=== PATIENT | female | born 1940 ===

== ENCOUNTER 2017-01-11 10:13 | Emergency (ER) | payer MEDICARE ==
[2017-01-11 10:30] VITALS: BP 112/67; PULSE 58; RESP 16; TEMP 97.4; O2SAT 96
--- NOTE | 2017-01-11 10:46 | C.PDOC ---
History Of Present Illness 76 year old female presents to the ER with complaint of a painful and swollen right 4th toe after stubbing it on a computer chair 3 days ago. Patient denies any other injuries, and she has no sensory changes, fever, bleeding, discharge. Time Seen by Provider: 01/11/17 10:35 Chief Complaint (Nursing): Lower Extremity Problem/Injury History Per: Patient History/Exam Limitations: no limitations Onset/Duration Of Symptoms: Days (3) Current Symptoms Are (Timing): Still Present Severity: Mild - Ankle/Foot Description Of Injury: Struck With Object (Computer chair) Past Medical History Reviewed: Historical Data, Nursing Documentation, Vital Signs Vital Signs: Last Vital Signs Temp 97.4 F L 01/11/17 10:28 Pulse 58 L 01/11/17 10:28 Resp 16 01/11/17 10:28 BP 112/67 01/11/17 10:28 Pulse Ox 96 01/11/17 12:17 - Medical History PMH: No Chronic Diseases - [facility] Procedures CERVICAL BIOPSY NEC (12/21/01) D & C NEC (11/29/02) GYNECOLOGIC EXAMINATION (06/04/98) HYSTEROSCOPY (11/29/02) OTH LYSIS-PERITONEAL ADHES (05/27/06) OTH REMOVE BOTH OVARIES/TUBES (05/27/06) OTHER AND UNSPECIFIED TOTAL ABDOMINAL HYSTERECTOMY (05/27/06) UTERINE LES DESTRUCT NEC (11/29/02) Family History: States: No Known Family Hx - Social History Hx Alcohol Use: No Hx Substance Use: No - Immunization History Hx Tetanus Toxoid Vaccination: No Hx Influenza Vaccination: No Hx Pneumococcal Vaccination: No Review Of Systems Except As Marked, All Systems Reviewed And Found Negative. Constitutional: Negative for: Fever Musculoskeletal: Positive for: Foot Pain (Right 4th toe with swelling) Skin: Negative for: Rash Neurological: Negative for: Weakness, Numbness Physical Exam - Physical Exam Appears: Well, Non-toxic Skin: Normal Color, Warm, Dry, No Rash Cardiovascular: Rhythm Regular Respiratory: Normal Breath Sounds, No Rales, No Rhonchi, No Wheezing Extremity: Normal ROM (right ankle), Tenderness (right 5th toe TTP ), No Calf Tenderness, Capillary Refill (<2 sec all digits ), No Deformity, Swelling ( Right 5th toe) Pulses: Left Dorsalis Pedis: Normal, Right Dorsalis Pedis: Normal Neurological/Psych: Oriented x3, Normal Sensation Gait: Steady ED Course And Treatment O2 Sat by Pulse Oximetry: 96 (Room air) Pulse Ox Interpretation: Normal - Other Rad Right foot x-ray X-Ray: Viewed By Me, Read By Radiologist Interpretation: Impression: Please note this is a study of the right foot. Transverse oblique fracture deformity through the midshaft of the 4th proximal phalanx.Diffuse osteopenia. Moderate hallux valgus deformity with joint space narrowing and subchondral sclerosis. Prominent plantar and dorsal calcaneal spurring. Prominent narrowing of the tibiotalar joint space. Bony productive change at the dorsal aspect of the midfoot. If pain persists, consider MRI. Progress Note: Patient given PO tylenol in ED, and Xray of foot ordered and reviewed. Fourth tow julio c taped and patient placed in ortho shoe by medical coding technician, checked by me - (+) NV intact. Patient instructed to follow up with podiatry within 1 week, and she was given Rx for tylenol. Patient understands she should return to ED if her symptoms worsen. Reevaluation Time: 11:15 Reassessment Condition: Improved Disposition Counseled Patient/Family Regarding: Studies Performed, Diagnosis, Need For Followup, Rx Given - Disposition Referrals: Podiatry Clinic [Outside] Disposition: HOME/ ROUTINE Disposition Time: 11:20 Condition: STABLE Additional Instructions: FOLLOW UP WITH PODIATRY WITHIN 1 WEEK USE TYLENOL NEEDED FOR PAIN RETURN TO ER IF YOUR SYMPTOMS WORSEN Prescriptions: Acetaminophen [Tylenol 325mg tab] 650 mg PO Q6 PRN #30 tab PRN Reason: pain/fever Instructions: Toe Fracture (ED) Print Language: SERBIAN - POA Present On Arrival: Falls Or Trauma - Clinical Impression Clinical Impression: Toe fracture, right - Scribe Statement The provider has reviewed the documentation as recorded by the Allegra Hallman All medical record entries made by the Allegra were at my direction and personally dictated by me. I have reviewed the chart and agree that the record accurately reflects my personal performance of the history, physical exam, medical decision making, and the department course for this patient. I have also personally directed, reviewed, and agree with the discharge instructions and disposition.
--- NOTE | 2017-01-11 11:56 | RAD ---
Right foot three views History: Fracture deformity. Comparison: None available. Findings: Please note this is a study of the right foot. Transverse oblique fracture deformity through the midshaft of the 4th proximal phalanx. Diffuse osteopenia. Moderate hallux valgus deformity with joint space narrowing and subchondral sclerosis. Prominent plantar and dorsal calcaneal spurring. Prominent narrowing of the tibiotalar joint space. Bony productive change at the dorsal aspect of the midfoot. Impression: Please note this is a study of the right foot. Transverse oblique fracture deformity through the midshaft of the 4th proximal phalanx. Diffuse osteopenia. Moderate hallux valgus deformity with joint space narrowing and subchondral sclerosis. Prominent plantar and dorsal calcaneal spurring. Prominent narrowing of the tibiotalar joint space. Bony productive change at the dorsal aspect of the midfoot. If pain persists, consider MRI.
== END 2017-01-11 11:26 | disposition home or self-care (01) ==
LOC: C.ER 10:13
DX: S92.511A Displaced fracture of proximal phalanx of right lesser toe(s), initial encounter for closed fracture (principal); W22.03XA Walked into furniture, initial encounter; Y93.89 Activity, other specified; Y92.89 Other specified places as the place of occurrence of the external cause